=== PATIENT | male | born 1965 | race African-American/Black ===

== ENCOUNTER 2024-03-13 02:20 | Inpatient (IN) ==
[2024-03-13 05:37] VITALS: BMI 24.3
[2024-03-13] MEDS: PERCOCET TAB 5/325 MG PO PRN (11:30)
[2024-03-13] MEDS: LR 1,000 ML IV 1,000 ML IV SCH (11:30)
[2024-03-13] MEDS: ZOSYN VIAL 3.375 GRAMS 3.375 G in NS 100 ML IV 100 ML IV SCH (12:56)
[2024-03-13] MEDS: NS 250 ML IV 25 ML IV PRN (12:57)
[2024-03-13] MEDS: NEURONTIN CAP 300 MG PO SCH (13:10)
[2024-03-13] MEDS ORDERED: NORCO 7.5/325 MG TAB PO PRN (13:53)
--- NOTE | 2024-03-13 17:13 | DR.H&P ---
H&P History & Physical for Day of: H&P Date: 03/13/24 Chief Complaint Chief Complaint: Pain and swelling left foot History of Present Illness History of Present Illness: 58 year old male diabetic who has had amputation of the left fifth toe for osteomyelitis and has an open wound. H has been treated for cellulitis of this wound and has been on 2 different antibiotics, levaquin to cover Morganella and group streptococcus and methicillin resistant staphylococcus and E.coli sensitive to Bractrim . He is not been taking them as designated. He has been non-compliant. He returned to the emergency room in [facility] and they saw him and referred him to me for admission. I believe of this admission is due to social issues. He says he is currently homeless and is going throught divorce. Past Medical History Past Medical History: Diabetes Past Surgical History Surgical History: Ortho Surgery Family History Family Medical History: Diabetes Mellitus, Heart Failure and Hypertension Social History Does patient currently use any type of tobacco product: Yes (1 ppd) Type of Tobacco Use: Cigars Does any household member use tobacco: Yes Alcohol Use: DAILY Drug Use: Cocaine Medications Home Medications: Home Medications Medication Instructions Recorded Confirmed Type sildenafil 100 mg tablet 100 mg PO QDAY PRN 02/16/24 03/13/24 History gabapentin 300 mg capsule 300 mg PO TID 02/27/24 03/13/24 History metformin 1,000 mg tablet 1,000 mg PO BID 02/27/24 03/13/24 History Allergies Allergies Allergy/AdvReac Type Severity Reaction Status Date / Time No Known Allergies Allergy Verified 02/16/24 02:07 Labs Labs: Laboratory POC Glucose (mg/dL) 135 mg/dL (65-99) H 03/13/24 12:02 Review of Systems Constitutional: See HPI Eyes: No Symptoms Reported ENT: No Symptoms Reported Respiratory: No Symptoms Reported Cardiovascular: No Symptoms Reported Gastrointestinal: No Symptoms Reported Genitourinary: No Symptoms Reported Musculoskeletal: No Symptoms Reported Skin: See HPI Neurological: No Symptoms Reported Physical Exam Vital Signs: Vital Signs Temperature 98.9 F Pulse Rate [Left Brachial] 67 Pulse Rate [Left Brachial] 69 Pulse Rate [Left Brachial] 68 Pulse Rate [Left Brachial] 61 Respiratory Rate 20 Respiratory Rate 23 Respiratory Rate 20 Respiratory Rate 20 Respiratory Rate 22 Respiratory Rate 21 Blood Pressure [Right Arm] 126/71 Blood Pressure [Right Arm] 120/67 Blood Pressure [Right Arm] 129/74 Blood Pressure [Right Arm] 115/71 O2 Sat by Pulse Oximetry 99 O2 Sat by Pulse Oximetry 100 O2 Sat by Pulse Oximetry 96 O2 Sat by Pulse Oximetry 96 Oriented: Normal, Time, Person and Place Eyes: Normal Ear: Normal Nose: Normal Throat: Normal Respiratory: Clear Throughout Cardiovascular: Normal : Normal Auscultation: Bowel Sounds: Normal Palpation: Normal Tenderness: Normal Skin: Wound (Moderate swelling in the left foot with open wound at the sight of left fifth toe Ray amputation measuring 3 by 2.5 by 0.5 CM with granulation tissue, some crusting on the periphery , no obvious cellulitis cellulitis. ) Musculoskeletal: Normal Psychiatric: Normal and Other (gives history of bipolar disorder ) Mood Description: Suspicious and Labile Affect: Angry Speech Pattern: Clear and Appropriate Assessment/Plan (1) Osteomyelitis of foot, left, acute: Status: Acute Plan: IV antibiotics (2) Type 2 diabetes mellitus without complications: Status: Acute Plan: diabetic diet and sliding scale insulin for now
[2024-03-13] MEDS: NORCO 7.5/325 MG TAB PO PRN (17:37)
[2024-03-13] MEDS: BACTRIM DS TAB PO SCH (20:48)
[2024-03-13] MEDS: SNACK - Diabetic Appropriate PO SCH (20:52)
[2024-03-13] MEDS: NovoLIN R (or HumuLIN R) SUBCUT PRN (21:34)
[2024-03-14 05:23] LABS: BASOPHILS # (AUTO) 0.1 X10^3/uL (0.0-0.1); BASOPHILS % (AUTO) 1.1 % (0.2-1.0); EOSINOPHILS # (AUTO) 0.2 x10^3/uL (0.0-0.2); EOSINOPHILS % (AUTO) 3.7 % (0.9-2.9); HEMATOCRIT 31.7 % (42.0-54.0); HEMOGLOBIN 10.6 g/dL (13.5-18.0); LYMPHOCYTES % (AUTO) 38.2 % (21.0-51.0); MEAN CORPUSCULAR HEMOGLOBIN 29.6 pg (27.0-34.0); MEAN CORPUSCULAR HGB CONC 33.6 g/dL (33.0-35.0); MEAN CORPUSCULAR VOLUME 88.3 fL (80.0-100.0); MEAN PLATELET VOLUME 7.8 fL (7.4-11.0); MONOCYTES # (AUTO) 0.6 x10^3/uL (0.3-0.8); MONOCYTES % (AUTO) 12.4 % (0.0-13.0); NEUTROPHILS # (AUTO) 2.3 x10^3/uL (2.2-4.8); NEUTROPHILS % (AUTO) 44.6 % (42.0-75.0); PLATELET COUNT 282 X10^3/uL (150.0-450.0); RED BLOOD COUNT 3.59 X10^6/uL (4.7-6.0); WHITE BLOOD COUNT 5.2 X10^3/uL (3.6-10.0)
[2024-03-14 05:35] LABS: ALANINE AMINOTRANSFERASE 14 Units/L (12-78); ALBUMIN 2.6 g/dL (3.4-5.0); ALKALINE PHOSPHATASE 83 Units/L (46-116); ASPARTATE AMINO TRANSFERASE 14 Units/L (15-37); BLOOD UREA NITROGEN 12 mg/dL (7-18); CALCIUM 9.3 mg/dL (8.5-10.1); CARBON DIOXIDE 29.5 mmol/L (21-32); CHLORIDE 102 mmol/L (98-107); COR CA(FOR HYPOALB) 10.4 mg/dL (8.5-10.1); COR NA(FOR HYPERGLY) 144 mmol/L (136-145); CREATININE 1.28 mg/dL (0.70-1.30); GLUCOSE 247 mg/dL (65-99); POTASSIUM 4.2 mmol/L (3.5-5.1); SODIUM 140 mmol/L (136-145); TOTAL PROTEIN 7.6 g/dL (6.4-8.2); eGFR NON BLACK RACES > 60 (>60)
[2024-03-14] MEDS: LEVAQUIN TAB 500 MG PO SCH (08:02)
[2024-03-14] MEDS: STERILE WATER IRRIGATION IR ONE (10:48)
[2024-03-14] MEDS: BACTROBAN TOPICAL OINT TOP SCH (10:48)
[2024-03-14] MEDS: HYDROGEN PEROXIDE 3% EXT ONE (10:48)
--- NOTE | 2024-03-14 11:41 | DR.CONSULT ---
CONSULT Consultation for Day of: Date: 03/14/24 Allergies Allergies Allergy/AdvReac Type Severity Reaction Status Date / Time No Known Allergies Allergy Verified 02/16/24 02:07 History of Present Illness History of Present Illness: Mr Montano is a 58y/o male with a PMH of cocaine use, uncontrolled DM, chronic left foot osteomyelitis and open wound is currently admitted for wound care. He has had recurrent admissions for this infection and treated with IV antibiotics and discharged on PO abx. He was seen by Dr Coates during his recent admission. He presented to [facility] ER and was transferred here for further care. He does have a hx of left 5th toe amputation. Medicine has been consulted. Dr Perry saw the patient today, planning to do I&D tomorrow. Patient is complaining about increased pain. He reports cocaine use prior to being admitted due to worsening pain. He also states seroquel makes him sleepy so he does not take it daily. Labs/imaging reviewed: -WBC 5.2 Hgb 10.6 K 4.2 Cr 1.28 Glucose 235 -Wound Cx pending -Prior wound Cx: MRSA, E.coli, strep Plan: follow surgery recommendations. I&D in the AM. Wound care as per surgery. Continue antibiotics. Follow pending Cx. Continue SSI. Add lantus 10 units qHS. Check A1C. Continue gabapentin. Continue pain control. Decrease seroquel to 50 mg qHS. Replace electrolytes prn. Continue hydration. Monitor AM labs/imaging. Past Medical History Past Medical History: Diabetes Past Surgical History Surgical History: Ortho Surgery Family History Family Medical History: Diabetes Mellitus, Heart Failure and Hypertension Social History Does patient currently use any type of tobacco product: Yes (1 ppd) Type of Tobacco Use: Cigars Does any household member use tobacco: Yes Alcohol Use: DAILY Drug Use: Cocaine Medications Home Medications: No Known Allergies Allergy (Verified 02/16/24 02:07) Review of Systems Constitutional: No Symptoms Reported Eyes: No Symptoms Reported ENT: No Symptoms Reported Respiratory: No Symptoms Reported Cardiovascular: No Symptoms Reported Gastrointestinal: No Symptoms Reported Genitourinary: No Symptoms Reported Musculoskeletal: Leg Pain and Foot Pain Skin: No Symptoms Reported Neurological: No Symptoms Reported Physical Exam Vital Signs: Vital Signs Temperature 98.2 F Temperature 98.2 F Pulse Rate [Left Brachial] 74 Pulse Rate [Left Brachial] 67 Respiratory Rate 18 Respiratory Rate 18 Respiratory Rate 20 Respiratory Rate 15 Respiratory Rate 30 Respiratory Rate 12 Blood Pressure [Right Arm] 98/59 Blood Pressure [Right Arm] 100/58 O2 Sat by Pulse Oximetry 98 O2 Sat by Pulse Oximetry 96 Oriented: Normal Nose: Normal Throat: Normal Respiratory: Clear Throughout Cardiovascular: Normal Auscultation: Bowel Sounds: Normal Palpation: Normal Tenderness: Normal Musculoskeletal: Left, Foot (wrapped in yanira bandage ) and Motor Deficit Psychiatric: Normal Mood Description: Calm Affect: Normal Speech Pattern: Clear and Appropriate Plan (1) Osteomyelitis of foot, left, acute: Status: Chronic (2) Type 2 diabetes mellitus without complications: Status: Chronic Qualifiers: Diabetes mellitus exterminator termite insulin use: without exterminator termite use Qualified Code(s): E11.9 - Type 2 diabetes mellitus without complications (3) Cocaine abuse: Status: Chronic (4) Diabetic ulcer of left foot: Status: Chronic Qualifiers: Diabetes mellitus type: other specified (including ANGELO) Diabetic foot ulcer location: unspecified part of foot Non-pressure ulcer stage: unspecified non-pressure ulcer stage Qualified Code(s): E13.621 - Other specified diabetes mellitus with foot ulcer; L97.529 - Non-pressure chronic ulcer of other part of left foot with unspecified severity (5) Anemia: Status: Chronic Qualifiers: Anemia type: unspecified type Qualified Code(s): D64.9 - Anemia, uns pecified
--- NOTE | 2024-03-14 16:33 | DR.PROGNOT ---
HOSPITAL PROGRESS NOTE Progress Note for Day of: Progress Note Date: 03/14/24 Chief Complaint Chief Complaint: This 58-year-old male who was admitted yesterday with infected ulcer of the lateral aspect of the left foot, he was admitted to the hospital last month with the same type of infection on the lateral aspect of the foot, at that time he was treated with antibiotics and debridement, final culture report showed MRSA infection as well as other bacteria. patient is complaining of the left foot laterally and having moderate drainage. He was started on IV antibiotics using Zosyn pending final culture report. Patient is diabetic, he is homeless and he is not taking his medications or changing the dressing as instructed. His white count is normal as well as his kidney and renal functions. Will continue local care with irrigation with peroxide, application of Bactroban and dressing. Will debride the ulcer in the morning and reevaluate. Past Medical Family Social History Past Med/Fam/Surg Hx: No changes since H&P Allergies: Allergies No Known Allergies Allergy (Verified 02/16/24 02:07) Vital Signs Vital Signs: Vital Signs Temperature 98.1 F Temperature 98.2 F Pulse Rate [Left Brachial] 61 Pulse Rate [Left Brachial] 74 Respiratory Rate 18 Respiratory Rate 12 Respiratory Rate 18 Respiratory Rate 18 Respiratory Rate 20 Blood Pressure [Right Arm] 98/53 Blood Pressure [Right Arm] 98/59 O2 Sat by Pulse Oximetry 95 O2 Sat by Pulse Oximetry 98 Physical Exam Oriented: Normal Eyes: Normal Ear: Normal Nose: Normal Throat: Normal Cardiovascular: Normal : Normal GI:Auscultation: Normal GI:Palpation: Normal GI: Tenderness: Normal Musculoskeletal: Left, Foot (wrapped in yanira bandage ) and Motor Deficit Psychiatric: Normal Mood Description: Calm Affect: Normal Speech Pattern: Clear and Appropriate Laboratory and Diagnostics 03/14/24 04:30 03/14/24 04:30 Labs: 03/14/24 10:15 Foot - Left Gram Stain - Final Laboratory WBC 5.2 X10^3/uL (3.6-10.0) 03/14/24 04:30 RBC 3.59 X10^6/uL (4.7-6.0) L 03/14/24 04:30 Hgb 10.6 g/dL (13.5-18.0) L 03/14/24 04:30 Hct 31.7 % (42.0-54.0) L 03/14/24 04:30 MCV 88.3 fL (80.0-100.0) 03/14/24 04:30 MCH 29.6 pg (27.0-34.0) 03/14/24 04:30 MCHC 33.6 g/dL (33.0-35.0) 03/14/24 04:30 RDW 15.0 % (11.6-16.5) 03/14/24 04:30 Plt Count 282 X10^3/uL (150.0-450.0) 03/14/24 04:30 MPV 7.8 fL (7.4-11.0) 03/14/24 04:30 Neut % (Auto) 44.6 % (42.0-75.0) 03/14/24 04:30 Lymph % (Auto) 38.2 % (21.0-51.0) 03/14/24 04:30 Carbon % (Auto) 12.4 % (0.0-13.0) 03/14/24 04:30 Eos % (Auto) 3.7 % (0.9-2.9) H 03/14/24 04:30 Baso % (Auto) 1.1 % (0.2-1.0) H 03/14/24 04:30 Neut # (Auto) 2.3 x10^3/uL (2.2-4.8) 03/14/24 04:30 Lymph # (Auto) 2.0 X10^3/uL (1.3-2.9) 03/14/24 04:30 Carbon # (Auto) 0.6 x10^3/uL (0.3-0.8) 03/14/24 04:30 Eos # (Auto) 0.2 x10^3/uL (0.0-0.2) 03/14/24 04:30 Baso # (Auto) 0.1 X10^3/uL (0.0-0.1) 03/14/24 04:30 Absolute Nucleated RBC 0.0 /100WBC 03/14/24 04:30 Sodium 140 mmol/L (136-145) 03/14/24 04:30 Corrected Sodium 144 mmol/L (136-145) 03/14/24 04:30 Potassium 4.2 mmol/L (3.5-5.1) 03/14/24 04:30 Chloride 102 mmol/L (98-107) 03/14/24 04:30 Carbon Dioxide 29.5 mmol/L (21-32) 03/14/24 04:30 BUN 12 mg/dL (7-18) 03/14/24 04:30 Creatinine 1.28 mg/dL (0.70-1.30) 03/14/24 04:30 Est GFR (MDRD) Af Amer > 60 (>60) 03/14/24 04:30 Est GFR (MDRD) Non-Af > 60 (>60) 03/14/24 04:30 Glucose 247 mg/dL (65-99) H 03/14/24 04:30 POC Glucose (mg/dL) 148 mg/dL (65-99) H 03/14/24 11:29 Hemoglobin A1c 8.5 % 03/14/24 04:30 Calcium 9.3 mg/dL (8.5-10.1) 03/14/24 04:30 Corrected Calcium 10.4 mg/dL (8.5-10.1) H 03/14/24 04:30 Total Bilirubin 0.50 mg/dL (0.2-1.0) 03/14/24 04:30 AST 14 Units/L (15-37) L 03/14/24 04:30 ALT 14 Units/L (12-78) 03/14/24 04:30 Alkaline Phosphatase 83 Units/L (46-116) 03/14/24 04:30 Total Protein 7.6 g/dL (6.4-8.2) 03/14/24 04:30 Albumin 2.6 g/dL (3.4-5.0) L 03/14/24 04:30 Globulin 5.0 g/dL (2.5-4.5) H 03/14/24 04:30 Albumin/Globulin Ratio 0.5 Ratio (1.1-2.1) L 03/14/24 04:30 Assessment and Plan 1: Infected diabetic ulcer of the left foot. For debridement in the morning with IV sedation. Same IV antibiotics and diabetic control. 2: Diabetes mellitus which is poorly controlled, patient is homeless. Medical consultation was obtained by Dr. Rios..
[2024-03-14] MEDS ORDERED: SNACK - Diabetic Appropriate PO SCH (20:00)
[2024-03-14] MEDS: SEROquel TAB 25 mg PO SCH (20:20)
[2024-03-14] MEDS: LANTUS SC SCH (20:22)
[2024-03-15 05:28] LABS: HEMOGLOBIN 9.8 g/dL (13.5-18.0); MEAN CORPUSCULAR HGB CONC 33.7 g/dL (33.0-35.0); MEAN PLATELET VOLUME 7.8 fL (7.4-11.0)
[2024-03-15 05:35] LABS: BASOPHILS % (AUTO) 0.7 % (0.2-1.0); EOSINOPHILS # (AUTO) 0.1 x10^3/uL (0.0-0.2); LYMPHOCYTES # (AUTO) 1.6 X10^3/uL (1.3-2.9); LYMPHOCYTES % (AUTO) 32.7 % (21.0-51.0); MEAN CORPUSCULAR HEMOGLOBIN 29.6 pg (27.0-34.0); MEAN CORPUSCULAR VOLUME 87.8 fL (80.0-100.0); MONOCYTES # (AUTO) 0.5 x10^3/uL (0.3-0.8); MONOCYTES % (AUTO) 9.7 % (0.0-13.0); NEUTROPHILS # (AUTO) 2.7 x10^3/uL (2.2-4.8); NEUTROPHILS % (AUTO) 53.9 % (42.0-75.0); PLATELET COUNT 275 X10^3/uL (150.0-450.0); RED CELL DISTRIBUTION WIDTH 14.8 % (11.6-16.5); WHITE BLOOD COUNT 4.9 X10^3/uL (3.6-10.0)
[2024-03-15 05:46] LABS: ALANINE AMINOTRANSFERASE 11 Units/L (12-78); ALBUMIN 2.2 g/dL (3.4-5.0); ALKALINE PHOSPHATASE 72 Units/L (46-116); ASPARTATE AMINO TRANSFERASE 11 Units/L (15-37); BLOOD UREA NITROGEN 6 mg/dL (7-18); CALCIUM 8.7 mg/dL (8.5-10.1); CARBON DIOXIDE 29.6 mmol/L (21-32); CHLORIDE 103 mmol/L (98-107); COR CA(FOR HYPOALB) 10.1 mg/dL (8.5-10.1); COR NA(FOR HYPERGLY) 140 mmol/L (136-145); CREATININE 1.18 mg/dL (0.70-1.30); GLUCOSE 195 mg/dL (65-99); POTASSIUM 3.9 mmol/L (3.5-5.1); SODIUM 138 mmol/L (136-145); TOTAL PROTEIN 6.5 g/dL (6.4-8.2); eGFR NON BLACK RACES > 60 (>60)
[2024-03-15] MEDS ORDERED: LEVAQUIN PREMIX IV 500 MG 500 MG/100 ML BAG IV SCH (09:00)
--- NOTE | 2024-03-15 09:51 | PCM.PROG ---
Progress Note Progress Note for Day of Date of Exam: 03/15/24 Subjective Subjective: Patient seen at bedside, no acute events overnight. He is currently admitted for left foot wound infection. Dr Perry is planning to take him for I&D later today. He is currently on Levaquin and Bactrim based on prev susceptibilities. Wound Cx is pending. Labs/imaging reviewed: -WBC 4.9 Hgb 9.8 BUN/Cr 6/1.18 -Wound Cx pending Plan: continue wound care as per surgery, follow final cultures. Continue antibiotics. Will increase Lantus to 12 units daily. Monitor glucose. Continue pain control. Continue home medications. Replace electrolytes prn. Monitor AM labs/imaging. Past Medical Family Social History Past Med/Fam/Surg Hx: No changes since H&P Allergies: Allergies No Known Allergies Allergy (Verified 02/16/24 02:07) Vital Signs and I&O's Vital Signs: Vital Signs Temperature 99.4 F Pulse Rate [Left Brachial] 60 Pulse Rate [Left Brachial] 72 Respiratory Rate 13 Respiratory Rate 13 Blood Pressure [Right Arm] 118/63 Blood Pressure [Right Arm] 114/66 O2 Sat by Pulse Oximetry 95 O2 Sat by Pulse Oximetry 94 Intake and Output: Intake & Output 03/12/24 03/13/24 03/14/24 03/15/24 23:59 23:59 23:59 23:59 Intake Total 1357 / 1357 4284 / 4284 813 / 813 Balance 1357 / 1357 4284 / 4284 813 / 813 Physical Exam Oriented: Normal Eyes: Normal Ear: Normal Nose: Normal Throat: Normal Cardiovascular: Normal Auscultation: Bowel Sounds: Normal Tenderness: Normal Skin: Wound (Moderate swelling in the left foot with open wound at the sight of left fifth toe Ray amputation measuring 3 by 2.5 by 0.5 CM with granulation tissue, some crusting on the periphery , no obvious cellulitis cellulitis. ) Musculoskeletal: Left, Foot (wrapped in yanira bandage ) and Motor Deficit Psychiatric: Normal Mood Description: Calm Affect: Normal Speech Pattern: Clear and Appropriate Laboratory and Diagnostics 03/15/24 04:48 03/15/24 04:48 Labs: 03/14/24 10:15 Foot - Left Gram Stain - Final Laboratory WBC 4.9 X10^3/uL (3.6-10.0) 03/15/24 04:48 RBC 3.30 X10^6/uL (4.7-6.0) L 03/15/24 04:48 Hgb 9.8 g/dL (13.5-18.0) L 03/15/24 04:48 Hct 29.0 % (42.0-54.0) L 03/15/24 04:48 MCV 87.8 fL (80.0-100.0) 03/15/24 04:48 MCH 29.6 pg (27.0-34.0) 03/15/24 04:48 MCHC 33.7 g/dL (33.0-35.0) 03/15/24 04:48 RDW 14.8 % (11.6-16.5) 03/15/24 04:48 Plt Count 275 X10^3/uL (150.0-450.0) 03/15/24 04:48 MPV 7.8 fL (7.4-11.0) 03/15/24 04:48 Neut % (Auto) 53.9 % (42.0-75.0) 03/15/24 04:48 Lymph % (Auto) 32.7 % (21.0-51.0) 03/15/24 04:48 [place] % (Auto) 9.7 % (0.0-13.0) 03/15/24 04:48 Eos % (Auto) 3.0 % (0.9-2.9) H 03/15/24 04:48 Baso % (Auto) 0.7 % (0.2-1.0) 03/15/24 04:48 Neut # (Auto) 2.7 x10^3/uL (2.2-4.8) 03/15/24 04:48 Lymph # (Auto) 1.6 X10^3/uL (1.3-2.9) 03/15/24 04:48 [place] # (Auto) 0.5 x10^3/uL (0.3-0.8) 03/15/24 04:48 Eos # (Auto) 0.1 x10^3/uL (0.0-0.2) 03/15/24 04:48 Baso # (Auto) 0.0 X10^3/uL (0.0-0.1) 03/15/24 04:48 Absolute Nucleated RBC 0.1 /100WBC 03/15/24 04:48 Sodium 138 mmol/L (136-145) 03/15/24 04:48 Corrected Sodium 140 mmol/L (136-145) 03/15/24 04:48 Potassium 3.9 mmol/L (3.5-5.1) 03/15/24 04:48 Chloride 103 mmol/L (98-107) 03/15/24 04:48 Carbon Dioxide 29.6 mmol/L (21-32) 03/15/24 04:48 BUN 6 mg/dL (7-18) L 03/15/24 04:48 Creatinine 1.18 mg/dL (0.70-1.30) 03/15/24 04:48 Est GFR (MDRD) Af Amer > 60 (>60) 03/15/24 04:48 Est GFR (MDRD) Non-Af > 60 (>60) 03/15/24 04:48 Glucose 195 mg/dL (65-99) H 03/15/24 04:48 POC Glucose (mg/dL) 205 mg/dL (65-99) H 03/15/24 05:08 Hemoglobin A1c 8.5 % 03/14/24 04:30 Calcium 8.7 mg/dL (8.5-10.1) 03/15/24 04:48 Corrected Calcium 10.1 mg/dL (8.5-10.1) 03/15/24 04:48 Total Bilirubin 0.40 mg/dL (0.2-1.0) 03/15/24 04:48 AST 11 Units/L (15-37) L 03/15/24 04:48 ALT 11 Units/L (12-78) L 03/15/24 04:48 Alkaline Phosphatase 72 Units/L (46-116) 03/15/24 04:48 Total Protein 6.5 g/dL (6.4-8.2) 03/15/24 04:48 Albumin 2.2 g/dL (3.4-5.0) L 03/15/24 04:48 Globulin 4.3 g/dL (2.5-4.5) 03/15/24 04:48 Albumin/Globulin Ratio 0.5 Ratio (1.1-2.1) L 03/15/24 04:48 Plan (1) Osteomyelitis of foot, left, acute: Status: Chronic (2) Type 2 diabetes mellitus without complications: Status: Chronic Qualifiers: Diabetes mellitus terminal block assembler insulin use: without terminal block assembler use Qualified Code(s): E11.9 - Type 2 diabetes mellitus without complications (3) Cocaine abuse: Status: Chronic (4) Diabetic ulcer of left foot: Status: Chronic Qualifiers: Diabetic foot ulcer location: unspecified part of foot Diabetes mellitus type: other specified (including ANGELO) Non-pressure ulcer stage: unspecified non-pressure ulcer stage Qualified Code(s): E13.621 - Other s pecified diabetes mellitus with foot ulcer; L97.529 - Non-pressure chronic ulcer of other part of left foot with unspecified severity (5) Anemia: Status: Chronic Qualifiers: Anemia type: unspecified type Qualified Code(s): D64.9 - Anemia, unspe cified
[2024-03-15] MEDS: LEVAQUIN TAB 500 MG PO SCH (10:23)
[2024-03-15] MEDS: XYLOCAINE 1% and EPINEPHRINE 1:100,000 ONE (13:33)
[2024-03-15] MEDS: NS 100 ML IV 100 ML ONE (14:00)
[2024-03-15] MEDS: NS 1,000 ML IV 1,000 ML ONE (14:00)
[2024-03-15] MEDS: ANCEF VIAL 1 GRAM ONE (14:00)
[2024-03-15] MEDS: DIPRIVAN VIAL 20 ML ONE (14:32)
[2024-03-15] MEDS: VERSED ONE (14:32)
[2024-03-15] MEDS: BETADINE SOLN ONE (14:35)
[2024-03-15] MEDS: FENTANYL VIAL INJ 100 mcg ONE (14:37)
[2024-03-15] MEDS: POLYMYXIN B SULFATE ONE (14:43)
[2024-03-15] MEDS: XYLOCAINE 1 % (PLAIN) ONE (14:49)
[2024-03-15] MEDS ORDERED: VANCOMYCIN IV *PREMIX 1 G/200 ML BAG 1 G/200 ML PIGGYBACK IV SCH (15:00)
[2024-03-15] MEDS: VANCOMYCIN HCL 1 G in NS 250 ML IV 250 ML IV SCH (15:46)
[2024-03-15] MEDS: NS 250 ML IV 250 ML IV ONE (17:38)
[2024-03-15] MEDS: LANTUS SC SCH (21:18)
[2024-03-16 05:50] LABS: BASOPHILS % (AUTO) 1.2 % (0.2-1.0); EOSINOPHILS # (AUTO) 0.2 x10^3/uL (0.0-0.2); EOSINOPHILS % (AUTO) 4.3 % (0.9-2.9); HEMATOCRIT 26.5 % (42.0-54.0); HEMOGLOBIN 8.9 g/dL (13.5-18.0); LYMPHOCYTES # (AUTO) 1.8 X10^3/uL (1.3-2.9); LYMPHOCYTES % (AUTO) 44.1 % (21.0-51.0); MEAN CORPUSCULAR HEMOGLOBIN 29.6 pg (27.0-34.0); MEAN CORPUSCULAR HGB CONC 33.7 g/dL (33.0-35.0); MEAN CORPUSCULAR VOLUME 87.7 fL (80.0-100.0); MEAN PLATELET VOLUME 7.7 fL (7.4-11.0); MONOCYTES # (AUTO) 0.4 x10^3/uL (0.3-0.8); MONOCYTES % (AUTO) 10.3 % (0.0-13.0); NEUTROPHILS # (AUTO) 1.6 x10^3/uL (2.2-4.8); NEUTROPHILS % (AUTO) 40.1 % (42.0-75.0); PLATELET COUNT 268 X10^3/uL (150.0-450.0); RED BLOOD COUNT 3.02 X10^6/uL (4.7-6.0); RED CELL DISTRIBUTION WIDTH 14.8 % (11.6-16.5); WHITE BLOOD COUNT 4.1 X10^3/uL (3.6-10.0)
[2024-03-16 06:01] LABS: ALANINE AMINOTRANSFERASE 9 Units/L (12-78); ALBUMIN 1.9 g/dL (3.4-5.0); ALKALINE PHOSPHATASE 60 Units/L (46-116); ASPARTATE AMINO TRANSFERASE 8 Units/L (15-37); BLOOD UREA NITROGEN 5 mg/dL (7-18); CALCIUM 8.8 mg/dL (8.5-10.1); CARBON DIOXIDE 32.8 mmol/L (21-32); CHLORIDE 107 mmol/L (98-107); COR CA(FOR HYPOALB) 10.5 mg/dL (8.5-10.1); COR NA(FOR HYPERGLY) 143 mmol/L (136-145); CREATININE 1.07 mg/dL (0.70-1.30); GLUCOSE 149 mg/dL (65-99); POTASSIUM 4.2 mmol/L (3.5-5.1); SODIUM 142 mmol/L (136-145); TOTAL PROTEIN 5.9 g/dL (6.4-8.2); eGFR NON BLACK RACES > 60 (>60)
[2024-03-16] MEDS: GLUCOPHAGE XR 24-HR PO SCH (10:57)
[2024-03-16] MEDS: ACTOS PO SCH (10:57)
[2024-03-16] MEDS: PROCRIT or EPOGEN VIAL 10,000 UNITS SC SCH (10:58)
[2024-03-16] MEDS: NS 100 ML IV 100 ML with VENOFER 100 MG IV ONE (10:58)
--- NOTE | 2024-03-16 11:23 | DR.PROGNOT ---
HOSPITAL PROGRESS NOTE Progress Note for Day of: Progress Note Date: 03/16/24 Chief Complaint Chief Complaint: Status post debridement left foot ulcer with packing with iodoform. Seems to be stable with no new complaint. White count is 9, hemoglobin 8.9, BUN/creatinine are normal, blood sugar 149, liver function test normal. Awaiting placement in a [place] [facility]. Past Medical Family Social History Past Med/Fam/Surg Hx: No changes since H&P Allergies: Allergies No Known Allergies Allergy (Verified 02/16/24 02:07) Vital Signs Vital Signs: Vital Signs Temperature 98.9 F Pulse Rate [Left Brachial] 63 Respiratory Rate 20 Respiratory Rate 14 Respiratory Rate 12 Respiratory Rate 16 Blood Pressure [Right Arm] 108/63 Blood Pressure [Right Arm] 95/57 Blood Pressure [Right Arm] 84/52 Blood Pressure [Right Arm] 86/50 O2 Sat by Pulse Oximetry 97 Physical Exam Oriented: Normal Eyes: Normal Ear: Normal Nose: Normal Throat: Normal Cardiovascular: Normal : Normal GI:Auscultation: Normal GI:Palpation: Normal GI: Tenderness: Normal Skin: Other (8 x 5 cm open ulcer left foot on the lateral aspect of the forefoot, no necrosis or abscess formation, the metatarsal head is exposed.) Musculoskeletal: Left, Foot (wrapped in yanira bandage ) and Motor Deficit Psychiatric: Normal Mood Description: Calm Affect: Normal Speech Pattern: Clear and Appropriate Laboratory and Diagnostics 03/16/24 04:45 03/16/24 04:45 Labs: 03/14/24 10:15 Foot - Left Gram Stain - Final 03/14/24 10:15 Foot - Left Wound Culture - Preliminary Laboratory WBC 4.1 X10^3/uL (3.6-10.0) 03/16/24 04:45 RBC 3.02 X10^6/uL (4.7-6.0) L 03/16/24 04:45 Hgb 8.9 g/dL (13.5-18.0) L 03/16/24 04:45 Hct 26.5 % (42.0-54.0) L 03/16/24 04:45 MCV 87.7 fL (80.0-100.0) 03/16/24 04:45 MCH 29.6 pg (27.0-34.0) 03/16/24 04:45 MCHC 33.7 g/dL (33.0-35.0) 03/16/24 04:45 RDW 14.8 % (11.6-16.5) 03/16/24 04:45 Plt Count 268 X10^3/uL (150.0-450.0) 03/16/24 04:45 MPV 7.7 fL (7.4-11.0) 03/16/24 04:45 Neut % (Auto) 40.1 % (42.0-75.0) L 03/16/24 04:45 Lymph % (Auto) 44.1 % (21.0-51.0) 03/16/24 04:45 [place] % (Auto) 10.3 % (0.0-13.0) 03/16/24 04:45 Eos % (Auto) 4.3 % (0.9-2.9) H 03/16/24 04:45 Baso % (Auto) 1.2 % (0.2-1.0) H 03/16/24 04:45 Neut # (Auto) 1.6 x10^3/uL (2.2-4.8) L 03/16/24 04:45 Lymph # (Auto) 1.8 X10^3/uL (1.3-2.9) 03/16/24 04:45 [place] # (Auto) 0.4 x10^3/uL (0.3-0.8) 03/16/24 04:45 Eos # (Auto) 0.2 x10^3/uL (0.0-0.2) 03/16/24 04:45 Baso # (Auto) 0.0 X10^3/uL (0.0-0.1) 03/16/24 04:45 Absolute Nucleated RBC 0.0 /100WBC 03/16/24 04:45 Sodium 142 mmol/L (136-145) 03/16/24 04:45 Corrected Sodium 143 mmol/L (136-145) 03/16/24 04:45 Potassium 4.2 mmol/L (3.5-5.1) 03/16/24 04:45 Chloride 107 mmol/L (98-107) 03/16/24 04:45 Carbon Dioxide 32.8 mmol/L (21-32) H 03/16/24 04:45 BUN 5 mg/dL (7-18) L 03/16/24 04:45 Creatinine 1.07 mg/dL (0.70-1.30) 03/16/24 04:45 Est GFR (MDRD) Af Amer > 60 (>60) 03/16/24 04:45 Est GFR (MDRD) Non-Af > 60 (>60) 03/16/24 04:45 Glucose 149 mg/dL (65-99) H 03/16/24 04:45 POC Glucose (mg/dL) 163 mg/dL (65-99) H 03/16/24 11:04 Hemoglobin A1c Cancelled 03/16/24 04:45 Calcium 8.8 mg/dL (8.5-10.1) 03/16/24 04:45 Corrected Calcium 10.5 mg/dL (8.5-10.1) H 03/16/24 04:45 Ferritin 353 ng/mL (26-388) 03/16/24 04:45 Total Bilirubin 0.30 mg/dL (0.2-1.0) 03/16/24 04:45 AST 8 Units/L (15-37) L 03/16/24 04:45 ALT 9 Units/L (12-78) L 03/16/24 04:45 Alkaline Phosphatase 60 Units/L (46-116) 03/16/24 04:45 Total Protein 5.9 g/dL (6.4-8.2) L 03/16/24 04:45 Albumin 1.9 g/dL (3.4-5.0) L 03/16/24 04:45 Globulin 4.0 g/dL (2.5-4.5) 03/16/24 04:45 Albumin/Globulin Ratio 0.5 Ratio (1.1-2.1) L 03/16/24 04:45 Assessment and Plan 1: Infected diabetic ulcer of the left foot. Status post debridement and packing with iodoform packing Same IV antibiotics and diabetic control. Local care with iodoform packing. 2: Diabetes mellitus which was poorly controlled, patient is homeless. Dr. Rios and Dr Kathleen are following medically.
[2024-03-16] MEDS: STERILE WATER IRRIGATION IR ONE (16:00)
[2024-03-16] MEDS: PHARMACY COMMENT IV NR (20:00)
[2024-03-16 20:31] LABS: CREATININE 1.06 mg/dL (0.70-1.30); VANCOMYCIN,TROUGH 9.8 ug/mL (15-20)
[2024-03-17] MEDS: VANCOMYCIN HCL 1 G in NS 250 ML IV 250 ML IV SCH (08:41)
[2024-03-17] MEDS: GLUCOPHAGE XR 24-HR PO SCH (20:24)
[2024-03-18 05:38] LABS: BASOPHILS % (AUTO) 0.7 % (0.2-1.0); EOSINOPHILS # (AUTO) 0.2 x10^3/uL (0.0-0.2); EOSINOPHILS % (AUTO) 3.8 % (0.9-2.9); HEMATOCRIT 27.7 % (42.0-54.0); HEMOGLOBIN 9.4 g/dL (13.5-18.0); LYMPHOCYTES # (AUTO) 1.8 X10^3/uL (1.3-2.9); LYMPHOCYTES % (AUTO) 35.2 % (21.0-51.0); MEAN CORPUSCULAR HEMOGLOBIN 30.2 pg (27.0-34.0); MEAN CORPUSCULAR VOLUME 88.8 fL (80.0-100.0); MEAN PLATELET VOLUME 7.8 fL (7.4-11.0); MONOCYTES # (AUTO) 0.3 x10^3/uL (0.3-0.8); MONOCYTES % (AUTO) 5.9 % (0.0-13.0); NEUTROPHILS # (AUTO) 2.8 x10^3/uL (2.2-4.8); NEUTROPHILS % (AUTO) 54.4 % (42.0-75.0); PLATELET COUNT 309 X10^3/uL (150.0-450.0); RED BLOOD COUNT 3.12 X10^6/uL (4.7-6.0); RED CELL DISTRIBUTION WIDTH 15.1 % (11.6-16.5); WHITE BLOOD COUNT 5.2 X10^3/uL (3.6-10.0)
[2024-03-18] MEDS: PHARMACY COMMENT IV NR (05:57)
[2024-03-18 06:30] LABS: ALANINE AMINOTRANSFERASE 10 Units/L (12-78); ALBUMIN 2.1 g/dL (3.4-5.0); ALKALINE PHOSPHATASE 67 Units/L (46-116); ASPARTATE AMINO TRANSFERASE 11 Units/L (15-37); BLOOD UREA NITROGEN 7 mg/dL (7-18); CALCIUM 8.7 mg/dL (8.5-10.1); CARBON DIOXIDE 28.7 mmol/L (21-32); CHLORIDE 107 mmol/L (98-107); COR CA(FOR HYPOALB) 10.2 mg/dL (8.5-10.1); COR NA(FOR HYPERGLY) 142 mmol/L (136-145); CREATININE 1.01 mg/dL (0.70-1.30); GLUCOSE 154 mg/dL (65-99); POTASSIUM 3.8 mmol/L (3.5-5.1); SODIUM 141 mmol/L (136-145); TOTAL PROTEIN 6.1 g/dL (6.4-8.2); eGFR NON BLACK RACES > 60 (>60)
[2024-03-18] MEDS: NS 250 ML IV 250 ML IV ONE (07:40)
[2024-03-18] MEDS ORDERED: CONSULT PHARMACY - POTASSIUM & MAGNESIUM XX SCH (09:00)
[2024-03-18] MEDS: LR 1,000 ML IV 1,000 ML with MAGNESIUM SULFATE 50% INJ VIAL 2 G IV SCH (09:58)
[2024-03-18] MEDS: K-DUR TAB 20 MEQ PO SCH (10:04)
--- NOTE | 2024-03-18 11:38 | DR.PROGNOT ---
HOSPITAL PROGRESS NOTE Progress Note for Day of: Progress Note Date: 03/18/24 Chief Complaint Chief Complaint: Status post debridement left foot ulcer with packing with iodoform. Seems to be stable with no new complaint. Last culture showed MRSA, sensitive to Bactrim. White count is 9, hemoglobin 8.9, BUN/creatinine are normal, blood sugar 154, liver function test normal. Awaiting placement in a halfway. Past Medical Family Social History Past Med/Fam/Surg Hx: No changes since H&P Allergies: Allergies No Known Allergies Allergy (Verified 02/16/24 02:07) Vital Signs Vital Signs: Vital Signs Temperature 98.4 F Temperature 98.2 F Pulse Rate [Left Brachial] 57 Pulse Rate [Left Brachial] 58 Respiratory Rate 19 Respiratory Rate 14 Respiratory Rate 13 Blood Pressure [Right Arm] 108/62 Blood Pressure [Right Arm] 106/65 O2 Sat by Pulse Oximetry 96 O2 Sat by Pulse Oximetry 96 Physical Exam Oriented: Normal Eyes: Normal Ear: Normal Nose: Normal Throat: Normal Cardiovascular: Normal : Normal GI:Auscultation: Normal GI:Palpation: Normal GI: Tenderness: Normal Skin: Other (8 x 5 cm open ulcer left foot on the lateral aspect of the forefoot, no necrosis or abscess formation, the metatarsal head is exposed.) Musculoskeletal: Left, Foot (wrapped in Fozia) and Motor Deficit Psychiatric: Normal Mood Description: Calm Affect: Normal Speech Pattern: Clear and Appropriate Laboratory and Diagnostics 03/18/24 04:45 03/18/24 04:45 Labs: 03/14/24 10:15 Foot - Left Gram Stain - Final 03/14/24 10:15 Foot - Left Wound Culture - Preliminary Methicillin Resis Staph Aureus Laboratory WBC 5.2 X10^3/uL (3.6-10.0) 03/18/24 04:45 RBC 3.12 X10^6/uL (4.7-6.0) L 03/18/24 04:45 Hgb 9.4 g/dL (13.5-18.0) L 03/18/24 04:45 Hct 27.7 % (42.0-54.0) L 03/18/24 04:45 MCV 88.8 fL (80.0-100.0) 03/18/24 04:45 MCH 30.2 pg (27.0-34.0) 03/18/24 04:45 MCHC 34.0 g/dL (33.0-35.0) 03/18/24 04:45 RDW 15.1 % (11.6-16.5) 03/18/24 04:45 Plt Count 309 X10^3/uL (150.0-450.0) 03/18/24 04:45 MPV 7.8 fL (7.4-11.0) 03/18/24 04:45 Neut % (Auto) 54.4 % (42.0-75.0) 03/18/24 04:45 Lymph % (Auto) 35.2 % (21.0-51.0) 03/18/24 04:45 [place] % (Auto) 5.9 % (0.0-13.0) 03/18/24 04:45 Eos % (Auto) 3.8 % (0.9-2.9) H 03/18/24 04:45 Baso % (Auto) 0.7 % (0.2-1.0) 03/18/24 04:45 Neut # (Auto) 2.8 x10^3/uL (2.2-4.8) 03/18/24 04:45 Lymph # (Auto) 1.8 X10^3/uL (1.3-2.9) 03/18/24 04:45 [place] # (Auto) 0.3 x10^3/uL (0.3-0.8) 03/18/24 04:45 Eos # (Auto) 0.2 x10^3/uL (0.0-0.2) 03/18/24 04:45 Baso # (Auto) 0.0 X10^3/uL (0.0-0.1) 03/18/24 04:45 Absolute Nucleated RBC 0.1 /100WBC 03/18/24 04:45 Sodium 141 mmol/L (136-145) 03/18/24 04:45 Corrected Sodium 142 mmol/L (136-145) 03/18/24 04:45 Potassium 3.8 mmol/L (3.5-5.1) 03/18/24 04:45 Chloride 107 mmol/L (98-107) 03/18/24 04:45 Carbon Dioxide 28.7 mmol/L (21-32) 03/18/24 04:45 BUN 7 mg/dL (7-18) 03/18/24 04:45 Creatinine 1.01 mg/dL (0.70-1.30) 03/18/24 04:45 Est GFR (MDRD) Af Amer > 60 (>60) 03/18/24 04:45 Est GFR (MDRD) Non-Af > 60 (>60) 03/18/24 04:45 Glucose 154 mg/dL (65-99) H 03/18/24 04:45 POC Glucose (mg/dL) 171 mg/dL (65-99) H 03/18/24 06:19 Hemoglobin A1c Cancelled 03/17/24 08:00 Calcium 8.7 mg/dL (8.5-10.1) 03/18/24 04:45 Corrected Calcium 10.2 mg/dL (8.5-10.1) H 03/18/24 04:45 Magnesium 1.5 mg/dL (2.0-2.9) L 03/18/24 04:45 Ferritin 353 ng/mL (26-388) 03/16/24 04:45 Total Bilirubin 0.20 mg/dL (0.2-1.0) 03/18/24 04:45 AST 11 Units/L (15-37) L 03/18/24 04:45 ALT 10 Units/L (12-78) L 03/18/24 04:45 Alkaline Phosphatase 67 Units/L (46-116) 03/18/24 04:45 Total Protein 6.1 g/dL (6.4-8.2) L 03/18/24 04:45 Albumin 2.1 g/dL (3.4-5.0) L 03/18/24 04:45 Globulin 4.0 g/dL (2.5-4.5) 03/18/24 04:45 Albumin/Globulin Ratio 0.5 Ratio (1.1-2.1) L 03/18/24 04:45 Vancomycin Trough 9.8 ug/mL (15-20) L 03/16/24 20:07 Random Vancomycin 16.4 ug/mL 03/18/24 04:45 Miscellaneous Test Hbg a1c 03/16/24 04:45 Assessment and Plan 1: Infected diabetic ulcer of the left foot. Status post debridement and packing with iodoform packing Same IV antibiotics and diabetic control. Local care with iodoform packing. 2: Diabetes mellitus which was poorly controlled, patient is homeless. Dr. Rios and Dr Kathleen are following medically.
[2024-03-19 05:16] LABS: BASOPHILS % (AUTO) 0.8 % (0.2-1.0); EOSINOPHILS # (AUTO) 0.2 x10^3/uL (0.0-0.2); EOSINOPHILS % (AUTO) 3.5 % (0.9-2.9); HEMATOCRIT 27.5 % (42.0-54.0); HEMOGLOBIN 9.2 g/dL (13.5-18.0); LYMPHOCYTES # (AUTO) 2.1 X10^3/uL (1.3-2.9); LYMPHOCYTES % (AUTO) 39.8 % (21.0-51.0); MEAN CORPUSCULAR HEMOGLOBIN 30.1 pg (27.0-34.0); MEAN CORPUSCULAR HGB CONC 33.7 g/dL (33.0-35.0); MEAN CORPUSCULAR VOLUME 89.3 fL (80.0-100.0); MEAN PLATELET VOLUME 7.6 fL (7.4-11.0); MONOCYTES # (AUTO) 0.4 x10^3/uL (0.3-0.8); MONOCYTES % (AUTO) 6.7 % (0.0-13.0); NEUTROPHILS # (AUTO) 2.6 x10^3/uL (2.2-4.8); NEUTROPHILS % (AUTO) 49.2 % (42.0-75.0); PLATELET COUNT 313 X10^3/uL (150.0-450.0); RED BLOOD COUNT 3.08 X10^6/uL (4.7-6.0); RED CELL DISTRIBUTION WIDTH 15.1 % (11.6-16.5); WHITE BLOOD COUNT 5.2 X10^3/uL (3.6-10.0)
[2024-03-19 05:47] LABS: ALANINE AMINOTRANSFERASE 10 Units/L (12-78); ALBUMIN 2.1 g/dL (3.4-5.0); ALKALINE PHOSPHATASE 65 Units/L (46-116); ASPARTATE AMINO TRANSFERASE 10 Units/L (15-37); BLOOD UREA NITROGEN 10 mg/dL (7-18); CALCIUM 8.9 mg/dL (8.5-10.1); CARBON DIOXIDE 30.8 mmol/L (21-32); CHLORIDE 107 mmol/L (98-107); COR CA(FOR HYPOALB) 10.4 mg/dL (8.5-10.1); COR NA(FOR HYPERGLY) 145 mmol/L (136-145); CREATININE 1.32 mg/dL (0.70-1.30); GLUCOSE 146 mg/dL (65-99); MAGNESIUM 1.9 mg/dL (2.0-2.9); SODIUM 144 mmol/L (136-145); eGFR NON BLACK RACES 59 (>60)
[2024-03-19] MEDS ORDERED: CONSULT PHARMACY - POTASSIUM & MAGNESIUM XX SCH (07:00)
[2024-03-19 13:30] LABS: CREATININE 1.11 mg/dL (0.70-1.30); VANCOMYCIN,TROUGH 11.7 ug/mL (15-20)
[2024-03-19] MEDS ORDERED: NS 250 ML IV 250 ML IV ONE (14:58)
[2024-03-20 05:43] LABS: BASOPHILS # (AUTO) 0.1 X10^3/uL (0.0-0.1); BASOPHILS % (AUTO) 1.1 % (0.2-1.0); EOSINOPHILS # (AUTO) 0.2 x10^3/uL (0.0-0.2); EOSINOPHILS % (AUTO) 3.4 % (0.9-2.9); HEMATOCRIT 28.4 % (42.0-54.0); HEMOGLOBIN 9.6 g/dL (13.5-18.0); LYMPHOCYTES # (AUTO) 2.1 X10^3/uL (1.3-2.9); LYMPHOCYTES % (AUTO) 41.6 % (21.0-51.0); MEAN CORPUSCULAR HEMOGLOBIN 30.1 pg (27.0-34.0); MEAN CORPUSCULAR HGB CONC 33.8 g/dL (33.0-35.0); MEAN CORPUSCULAR VOLUME 89.2 fL (80.0-100.0); MEAN PLATELET VOLUME 7.6 fL (7.4-11.0); MONOCYTES # (AUTO) 0.4 x10^3/uL (0.3-0.8); MONOCYTES % (AUTO) 7.6 % (0.0-13.0); NEUTROPHILS # (AUTO) 2.4 x10^3/uL (2.2-4.8); NEUTROPHILS % (AUTO) 46.3 % (42.0-75.0); PLATELET COUNT 317 X10^3/uL (150.0-450.0); RED BLOOD COUNT 3.18 X10^6/uL (4.7-6.0); RED CELL DISTRIBUTION WIDTH 15.5 % (11.6-16.5); WHITE BLOOD COUNT 5.1 X10^3/uL (3.6-10.0)
[2024-03-20 06:09] LABS: ALANINE AMINOTRANSFERASE 12 Units/L (12-78); ALBUMIN 2.2 g/dL (3.4-5.0); ALKALINE PHOSPHATASE 64 Units/L (46-116); ASPARTATE AMINO TRANSFERASE 14 Units/L (15-37); BLOOD UREA NITROGEN 8 mg/dL (7-18); CALCIUM 8.5 mg/dL (8.5-10.1); CARBON DIOXIDE 27.2 mmol/L (21-32); CHLORIDE 107 mmol/L (98-107); COR CA(FOR HYPOALB) 9.9 mg/dL (8.5-10.1); COR NA(FOR HYPERGLY) 143 mmol/L (136-145); CREATININE 0.98 mg/dL (0.70-1.30); GLUCOSE 145 mg/dL (65-99); POTASSIUM 3.8 mmol/L (3.5-5.1); SODIUM 142 mmol/L (136-145); eGFR NON BLACK RACES > 60 (>60)
[2024-03-20] MEDS: MAG-OX TAB PO SCH ×2 (08:15→10:46)
[2024-03-20] MEDS ORDERED: CONSULT PHARMACY - POTASSIUM & MAGNESIUM XX SCH (09:00)
[2024-03-20] MEDS: K-DUR TAB 20 MEQ PO SCH (10:46)
[2024-03-20 21:31] LABS: CREATININE 1.23 mg/dL (0.70-1.30); VANCOMYCIN,TROUGH 17.2 ug/mL (15-20)
[2024-03-21 06:19] LABS: BASOPHILS % (AUTO) 0.7 % (0.2-1.0); EOSINOPHILS # (AUTO) 0.1 x10^3/uL (0.0-0.2); EOSINOPHILS % (AUTO) 2.6 % (0.9-2.9); HEMATOCRIT 29.3 % (42.0-54.0); HEMOGLOBIN 9.9 g/dL (13.5-18.0); LYMPHOCYTES # (AUTO) 2.2 X10^3/uL (1.3-2.9); LYMPHOCYTES % (AUTO) 39.7 % (21.0-51.0); MEAN CORPUSCULAR HGB CONC 33.6 g/dL (33.0-35.0); MEAN CORPUSCULAR VOLUME 89.2 fL (80.0-100.0); MEAN PLATELET VOLUME 7.6 fL (7.4-11.0); MONOCYTES # (AUTO) 0.4 x10^3/uL (0.3-0.8); MONOCYTES % (AUTO) 6.8 % (0.0-13.0); NEUTROPHILS # (AUTO) 2.7 x10^3/uL (2.2-4.8); NEUTROPHILS % (AUTO) 50.2 % (42.0-75.0); PLATELET COUNT 326 X10^3/uL (150.0-450.0); RED BLOOD COUNT 3.29 X10^6/uL (4.7-6.0); RED CELL DISTRIBUTION WIDTH 15.9 % (11.6-16.5); WHITE BLOOD COUNT 5.4 X10^3/uL (3.6-10.0)
[2024-03-21 06:39] LABS: ALANINE AMINOTRANSFERASE 12 Units/L (12-78); ALBUMIN 2.2 g/dL (3.4-5.0); ALKALINE PHOSPHATASE 69 Units/L (46-116); ASPARTATE AMINO TRANSFERASE 14 Units/L (15-37); BLOOD UREA NITROGEN 14 mg/dL (7-18); CALCIUM 8.9 mg/dL (8.5-10.1); CARBON DIOXIDE 27.4 mmol/L (21-32); CHLORIDE 105 mmol/L (98-107); COR CA(FOR HYPOALB) 10.3 mg/dL (8.5-10.1); CREATININE 1.05 mg/dL (0.70-1.30); GLUCOSE 105 mg/dL (65-99); MAGNESIUM 1.8 mg/dL (2.0-2.9); POTASSIUM 4.1 mmol/L (3.5-5.1); SODIUM 140 mmol/L (136-145); eGFR NON BLACK RACES > 60 (>60)
[2024-03-21 12:36] VITALS: BP 116/63; PULSE 67; TEMP 98.2; O2SAT 91
[2024-03-21 15:40] VITALS: RESP 20
--- NOTE | 2024-04-01 11:47 | DR.PROGNOT ---
HOSPITAL PROGRESS NOTE Progress Note for Day of: Progress Note Date: 03/16/24 Chief Complaint Chief Complaint: Status post debridement left foot ulcer with packing with iodoform. Seems to be stable with no new complaint. White count is 9, hemoglobin 8.9, BUN/creatinine are normal, blood sugar 149, liver function test normal. Awaiting placement in a detention. Past Medical Family Social History Past Med/Fam/Surg Hx: No changes since H&P Allergies: Allergies No Known Allergies Allergy (Verified 02/16/24 02:07) Vital Signs Vital Signs: Vital Signs Temperature 98.9 F Pulse Rate [Left Brachial] 63 Respiratory Rate 20 Respiratory Rate 14 Respiratory Rate 12 Respiratory Rate 16 Blood Pressure [Right Arm] 108/63 Blood Pressure [Right Arm] 95/57 Blood Pressure [Right Arm] 84/52 Blood Pressure [Right Arm] 86/50 O2 Sat by Pulse Oximetry 97 Physical Exam Oriented: Normal Eyes: Normal Ear: Normal Nose: Normal Throat: Normal Cardiovascular: Normal : Normal GI:Auscultation: Normal GI:Palpation: Normal GI: Tenderness: Normal Skin: Other Musculoskeletal: Left, Foot (wrapped in yanira bandage ) and Motor Deficit Psychiatric: Normal Mood Description: Calm Affect: Normal Speech Pattern: Clear and Appropriate Laboratory and Diagnostics 03/16/24 04:45 03/16/24 04:45 Labs: 03/14/24 10:15 Foot - Left Gram Stain - Final 03/14/24 10:15 Foot - Left Wound Culture - Preliminary Laboratory WBC 4.1 X10^3/uL (3.6-10.0) 03/16/24 04:45 RBC 3.02 X10^6/uL (4.7-6.0) L 03/16/24 04:45 Hgb 8.9 g/dL (13.5-18.0) L 03/16/24 04:45 Hct 26.5 % (42.0-54.0) L 03/16/24 04:45 MCV 87.7 fL (80.0-100.0) 03/16/24 04:45 MCH 29.6 pg (27.0-34.0) 03/16/24 04:45 MCHC 33.7 g/dL (33.0-35.0) 03/16/24 04:45 RDW 14.8 % (11.6-16.5) 03/16/24 04:45 Plt Count 268 X10^3/uL (150.0-450.0) 03/16/24 04:45 MPV 7.7 fL (7.4-11.0) 03/16/24 04:45 Neut % (Auto) 40.1 % (42.0-75.0) L 03/16/24 04:45 Lymph % (Auto) 44.1 % (21.0-51.0) 03/16/24 04:45 [place] % (Auto) 10.3 % (0.0-13.0) 03/16/24 04:45 Eos % (Auto) 4.3 % (0.9-2.9) H 03/16/24 04:45 Baso % (Auto) 1.2 % (0.2-1.0) H 03/16/24 04:45 Neut # (Auto) 1.6 x10^3/uL (2.2-4.8) L 03/16/24 04:45 Lymph # (Auto) 1.8 X10^3/uL (1.3-2.9) 03/16/24 04:45 [place] # (Auto) 0.4 x10^3/uL (0.3-0.8) 03/16/24 04:45 Eos # (Auto) 0.2 x10^3/uL (0.0-0.2) 03/16/24 04:45 Baso # (Auto) 0.0 X10^3/uL (0.0-0.1) 03/16/24 04:45 Absolute Nucleated RBC 0.0 /100WBC 03/16/24 04:45 Sodium 142 mmol/L (136-145) 03/16/24 04:45 Corrected Sodium 143 mmol/L (136-145) 03/16/24 04:45 Potassium 4.2 mmol/L (3.5-5.1) 03/16/24 04:45 Chloride 107 mmol/L (98-107) 03/16/24 04:45 Carbon Dioxide 32.8 mmol/L (21-32) H 03/16/24 04:45 BUN 5 mg/dL (7-18) L 03/16/24 04:45 Creatinine 1.07 mg/dL (0.70-1.30) 03/16/24 04:45 Est GFR (MDRD) Af Amer > 60 (>60) 03/16/24 04:45 Est GFR (MDRD) Non-Af > 60 (>60) 03/16/24 04:45 Glucose 149 mg/dL (65-99) H 03/16/24 04:45 POC Glucose (mg/dL) 163 mg/dL (65-99) H 03/16/24 11:04 Hemoglobin A1c Cancelled 03/16/24 04:45 Calcium 8.8 mg/dL (8.5-10.1) 03/16/24 04:45 Corrected Calcium 10.5 mg/dL (8.5-10.1) H 03/16/24 04:45 Ferritin 353 ng/mL (26-388) 03/16/24 04:45 Total Bilirubin 0.30 mg/dL (0.2-1.0) 03/16/24 04:45 AST 8 Units/L (15-37) L 03/16/24 04:45 ALT 9 Units/L (12-78) L 03/16/24 04:45 Alkaline Phosphatase 60 Units/L (46-116) 03/16/24 04:45 Total Protein 5.9 g/dL (6.4-8.2) L 03/16/24 04:45 Albumin 1.9 g/dL (3.4-5.0) L 03/16/24 04:45 Globulin 4.0 g/dL (2.5-4.5) 03/16/24 04:45 Albumin/Globulin Ratio 0.5 Ratio (1.1-2.1) L 03/16/24 04:45 Assessment and Plan 1: Infected diabetic ulcer of the left foot. For debridement in the morning with IV sedation. Same IV antibiotics and diabetic control. 2: Diabetes mellitus which is poorly controlled, patient is homeless. Medical consultation was obtained by Dr. Rios..
== END 2024-03-21 16:25 | DRG 464 ==
LOC: ICU → MED/SURG 03-20 14:25
PROVIDERS: ADMIT Surgery; ATTEND Surgery
DX: Z16.29 Resistance to other single specified antibiotic; F14.10 Cocaine abuse, uncomplicated; L97.529 Non-pressure chronic ulcer of other part of left foot with unspecified severity; B95.1 Streptococcus, group B, as the cause of diseases classified elsewhere; Z16.12 Extended spectrum beta lactamase (ESBL) resistance; B95.62 Methicillin resistant Staphylococcus aureus infection as the cause of diseases classified elsewhere; M86.172 Other acute osteomyelitis, left ankle and foot; Z59.86 Financial insecurity; Z59.00 Homelessness unspecified; E11.65 Type 2 diabetes mellitus with hyperglycemia; Z16.23 Resistance to quinolones and fluoroquinolones; E11.621 Type 2 diabetes mellitus with foot ulcer; Z72.0 Tobacco use; D64.89 Other specified anemias